=== PATIENT | female | born 1955 | race Caucasian/White ===

== ENCOUNTER 2016-10-11 10:14 | Day surgery (SDC) | payer BC ==
[~2016-10-11] VITALS: Ht 154.9 cm; Wt 60.0 kg
[2016-10-11 11:36] VITALS: Ht 154.9 cm; Wt 60.0 kg
[2016-10-11] MEDS ORDERED: BLOOD PRESSURE MEDS (11:37)
[2016-10-11] MEDS ORDERED: LIDOCAINE 4% SOLUTION 50 ML BTL ONE (11:47)
[2016-10-11 12:06] VITALS: BP 133/74; PULSE 72; RESP 18
[2016-10-11] MEDS ORDERED: MIDAZOLAM 1 MG/ML 2 ML INJ ONE ×2 (13:21→13:22)
[2016-10-11] MEDS ORDERED: FENTAnyl 50 MCG/ML VIAL ONE (13:22)
--- NOTE | 2016-10-11 18:11 | GILP ---
DATE OF PROCEDURE: PROCEDURE PERFORMED: EGD with biopsy. INDICATION: A 60-year-old female undergoing this procedure for epigastric pain for the last 3 years and heartburn. The purpose is to evaluate upper GI tract to rule out H. pylori infection or peptic ulcer disease. The risk of the procedure, related and unrelated complications, anesthetic risks, a lternatives discussed and informed consent was obtained. DESCRIPTION OF PROCEDURE: The patient was brought to the GI lab, sedated with Versed and fentanyl, and after optimum sedation, scope was passed with much ease into esophagus which was grossly within normal limits. Z line was at 35 cm which was regular. Stomach mucosa revealed mild gastritis. Duo denum, first and second part, was within normal limits. Biopsy taken from the stomach to rule out H . pylori infection. Retroversion done, no growth was seen. Scope was straightened out and removed with good patient tolerance. IMPRESSION 1. Gastritis. 2. Normal Z line at 35 cm. 3. Normal esophagus. 4. Normal duodenum. PLAN: This finding cannot explain the abdominal pain. The patient definitely needs further workup like ultrasound of the abdomen to rule out gallstones or a CAT scan. Dictated By: MAREN REYES/TAYLOR Conf#: [id number] DID#: [id number]
== END 2016-10-11 16:06 | disposition home or self-care (01) ==
LOC: GIL 10:14
PROVIDERS: ATTEND Internal Medicine Gastroenterology
DX: K29.70 Gastritis, unspecified, without bleeding (principal)
CPT/HCPCS: 43239; 88305; 88312; J2250; J3010; Z7610